=== PATIENT | female | born 2000 | race Caucasian/White ===

== ENCOUNTER 2023-11-03 15:25 | Emergency (ER) | payer OTHER, SELFPAY ==
[2023-11-03 15:30] VITALS: BP 117/74; PULSE 90; RESP 18; TEMP 36.8; O2SAT 96; BMI 31.9
--- NOTE | 2023-11-03 15:44 | CRLHL7_ITS ---
For Patients: As a result of the Century Cures Act, medical imaging exams and procedure reports are released immediately into your electronic medical record. You may view this report before your referring provider. If you have questions, please contact your health care provider. Indication: : Chest pain TECHNIQUE: Single-view chest. FINDINGS: The lungs are clear. The heart, mediastinum and pulmonary vessels are of normal size. There is no evidence of pleural disease. IMPRESSION: Negative chest. Dictated by Andreina Kaye MD @ 11/03/2023 4:46:47 PM (Electronically Signed)
--- NOTE | 2023-11-03 16:01 | ED.GENADULT ---
HPI - General Adult General Chief complaint: Rib Pain Stated complaint: left side intense rib pain, hard to breathe Time Seen by Provider: 11/03/23 15:39 History of Present Illness HPI narrative: Patient is a 22-year-old woman who has no significant past medical history who presents with left-sided chest pain. The pain in compass is virtually the entire left side of her chest extending to the scapular region. She states is worse when she takes a deep breath. She has had no fevers no chills no night sweats no hemoptysis. She has no anterior chest pain upon arrival her EKG shows normal sinus rhythm with no acute ST or T-wave changes upon my review. Patient otherwise is in her usual state of health. The pain is 6 out 10 intensity and minimally responsive to Tylenol and Motrin. Related Data Home Medications ?Medication ?Instructions ?Recorded ?Confirmed desogestrel 0.15 mg-ethinyl 1 tab PO DAILY 11/03/23 11/03/23 estradiol 0.03 mg tablet (Apri) escitalopram oxalate 10 mg tablet 10 mg PO DAILY 11/03/23 11/03/23 (Lexapro) Allergies Allergy/AdvReac Type Severity Reaction Status Date / Time No Known Drug Allergies Allergy Verified 11/03/23 15:30 Review of Systems Status of ROS: Reports: 10 or more systems reviewed and unremarkable except as noted in History and below [facility] Social History Smoking Status: Never smoker How often do you have a drink containing alcohol: 2-4 times a month AUDIT-C Alcohol total score: 2 Non-prescribed substance use: denies use Exam Narrative: Exam Narrative: EXAM GENERAL: Patient appears comfortable and well. EYES: No scleral icterus. LYMPH: No supraclavicular or cervical lymphadenopathy. SKIN: Visible skin seen during exam normal or with benign process only. EXT: No dependent lower extremity pedal edema. HEART: Regular rate and rhythm with no murmurs, rubs, or gallops. LUNGS: Clear to auscultation bilaterally with no crackles or wheezes. ABD: Soft, non tender, non distended. PSYCH: Good eye contact, speech is not pressured. Const: Vital Signs, click to edit/add: Vital Signs - 24 hr 11/03/23 15:30 Temperature 98.3 F Pulse Rate [Pulse Oximeter] 90 Respiratory Rate 18 Blood Pressure [Ri ght Upper Arm] 117/74 Pulse Oximetry 96 Oxygen Delivery Me thod Room Air Course Course ED Course: Patient seen and examined. EKG negative upon my review. D-dimer troponin CBC basic metabolic panel portable chest ordered. Patient states she is not at this time. Vital Signs Vital signs: Initial Vital Signs Temperature 98.3 F 11/03/23 15:30 Temperature Source Temporal Artery Scan 11/03/23 15:30 Pulse Rate 90 11/03/23 15:30 Pulse Rhythm Regular 11/03/23 15:30 Respiratory Rate 18 11/03/23 15:30 Blood Pressure 117/74 11/03/23 15:30 Blood Pressure Mean 88 11/03/23 15:30 Blood Pressure Position Sitting 11/03/23 15:30 Pulse Oximetry 96 11/03/23 15:30 Oxygen Delivery Method Room Air 11/03/23 15:30 Vital Signs Temperature 98.3 F 11/03/23 15:30 Pulse Rate 90 11/03/23 15:30 Respiratory Rate 18 11/03/23 15:30 Blood Pressure 117/74 11/03/23 15:30 Pulse Oximetry 96 11/03/23 15:30 Oxygen Delivery Method Room Air 11/03/23 15:30 Temperature 98.3 F 11/03/23 15:30 Pulse Rate 90 11/03/23 15:30 Respiratory Rate 18 11/03/23 15:30 Blood Pressure 117/74 11/03/23 15:30 Pulse Oximetry 96 11/03/23 15:30 Oxygen Delivery Method Room Air 11/03/23 15:30 Medical Decision Making [facility] Narrative Medical decision making narrative: Patient is a 22-year-old woman comes in today with left-sided chest pain. Troponin negative. Symptoms been going on several days. Chest x-ray negative upon my review as is EKG. D-dimer negative. Electrolytes unremarkable. I have feel most likely diagnosis is pleurisy versus musculoskeletal chest wall strain. Will treat with short course of prednisone as she has been unsuccessful getting her symptoms under control Tylenol and Motrin. Rest fluids and follow-up with primary care. Lab Data Labs: Lab Results 11/03/23 Range/Units 16:04 WBC 7.57 (4.50-11.00) K/uL RBC 5.05 (4.00-5.20) m/uL Hgb 13.6 (12.0-16.0) gm/dL Hct 40.2 (33.0-51.0) % MCV 80 (80-100) fL MCH 27 (26-34) pg MCHC 34 (32-36) gm/dL RDW Coeff of Jony 12.1 (11.5-15.5) % Plt Count 264 (140-440) K/uL Neut % (Auto) 67.8 (42.0-72.0) % Lymph % (Auto) 22.9 (20-44) % Pitt % (Auto) 7.7 (0.0-11.0) % Eos % (Auto) 1.2 (0.0-7.0) % Baso % (Auto) 0.1 (0.0-3.0) % Neut # (Auto) 5.14 (1.7-7.0) K/uL Lymph # (Auto) 1.73 (0.90-2.90) K/uL Pitt # (Auto) 0.60 (0.00-0.90) K/UL Eos # (Auto) 0.09 (0.00-0.50) K/uL Baso # (Auto) 0.01 (0.00-0.30) K/uL Abs Immat Gran (auto) 0.02 (0.00-0.30) K/uL Imm/Tot Granulo (auto) 0.3 % D-Dimer Quant (PE/DVT) 0.52 H (0.00-0.50) ug/ml Sodium 138 (135-149) mmol/L Potassium 3.7 (3.6-5.1) mmol/L Chloride 106 (96-114) mmol/L Carbon Dioxide 21 (20-32) mmol/L Anion Gap 11 (7-15) mEq/L BUN 9 (5-24) mg/dL Creatinine 0.6 (0.5-1.5) mg/dL Estimated Creat Clear 119.60 Estimated GFR 128 ml/min Glucose 94 (60-115) mg/dL Calcium 9.2 (8.4-10.6) mg/dL Troponin I < 0.01 L (0.01-0.04) ng/mL Discharge Plan Discharge Clinical Impression: Pleurisy Patient Disposition: Home, Self-Care Condition: Stable Instructions: Pleurisy (ED) Additional Instructions: Prednisone as directed per instymeds. Tylenol Ice Follow-up with your doctor as directed Activity Level: No Restrictions Discharge Diet: Regular Prescriptions: No Action escitalopram oxalate [Lexapro] 10 mg tablet 10 mg PO DAILY desogestrel-ethinyl estradiol [Apri] 0.15-0.03 mg tablet 1 tab PO DAILY Follow Up/Referrals: Provider,Not a Local [Primary Care Provider] - Stand Alone Forms: [employer] Info Instructions
[2023-11-03 16:12] LABS: Basophils Absolute Auto 0.01 K/uL (0.00-0.30); Basophils Percent Auto 0.1 % (0.0-3.0); Eosinophils Absolute Auto 0.09 K/uL (0.00-0.50); Eosinophils Percent Auto 1.2 % (0.0-7.0); Hematocrit 40.2 % (33.0-51.0); Hemoglobin* 13.6 gm/dL (12.0-16.0); Immature Granulocytes Abs Auto 0.02 K/uL (0.00-0.30); Immature Granulocytes Pct Auto 0.3 %; Lymphocytes Absolute Auto 1.73 K/uL (0.90-2.90); Lymphocytes Percent Auto 22.9 % (20-44); Mean Corpuscular HGB Conc 34 gm/dL (32-36); Mean Corpuscular Hemoglobin 27 pg (26-34); Mean Corpuscular Volume 80 fL (80-100); Monocytes Percent Auto 7.7 % (0.0-11.0); Neutrophils Absolute Auto 5.14 K/uL (1.7-7.0); Neutrophils Percent Auto 67.8 % (42.0-72.0); Platelet Count* 264 K/uL (140-440); RDW Coefficient of Variation % 12.1 % (11.5-15.5); Red Blood Count 5.05 m/uL (4.00-5.20); White Blood Count* 7.57 K/uL (4.50-11.00)
[2023-11-03 16:13] LABS: Slide Review Reflex No
[2023-11-03 16:27] LABS: Chloride* 106 mmol/L (96-114); Potassium* 3.7 mmol/L (3.6-5.1); Sodium* 138 mmol/L (135-149)
[2023-11-03 16:30] LABS: Anion Gap 11 mEq/L (7-15); Blood Urea Nitrogen* 9 mg/dL (5-24); Carbon Dioxide* 21 mmol/L (20-32); Creatinine* 0.6 mg/dL (0.5-1.5); Estimated Glomerular Filt Rate 128 ml/min; Glucose* 94 mg/dL (60-115)
[2023-11-03 16:31] LABS: Calcium* 9.2 mg/dL (8.4-10.6)
[2023-11-03 16:39] LABS: D Dimer Quantitative* 0.52 ug/ml (0.00-0.50)
[2023-11-03 16:51] LABS: Troponin I* < 0.01 ng/mL (0.01-0.04)
[2023-11-03 17:10] VITALS: BP 117/74; PULSE 90; RESP 18; TEMP 36.8
== END 2023-11-03 17:10 | disposition home or self-care (01) ==
PROVIDERS: Emergency Provider Internal Medicine
DX: R09.1 Pleurisy (principal)
CPT/HCPCS: 36415; 71045; 80048; 84484; 85025; 85379; 93005; 99283; 99284; 99285